=== PATIENT | female | born 1935 | race African-American/Black ===

== ENCOUNTER 2017-07-04 15:00 | Outpatient (RCR) | payer OTHER ==
[~2017-07-04 15:00] MED LIST: ADVAIR 500-501 EACH INH; CLARITIN10 M2 ORAL; DIPHENHYDRAMINE25 M1 ORAL; FLUTICASONE PRO16 G1 NASAL; HYDROCHLOROTH12.5 M2 ORAL; NORVASC5 MG ORAL; SPIRIVA18 MCG INH; VENTOLIN HFA18 GM INH
== END 2017-07-05 | disposition home or self-care (01) ==
LOC: PTY 15:00
PROVIDERS: ATTEND Internal Medicine
DX: M54.5 Low back pain (principal); G89.29 Other chronic pain; M21.70 Unequal limb length (acquired), unspecified site
CPT/HCPCS: 97110; 97140; 97162; G0283

== ENCOUNTER 2017-07-24 13:29 | Outpatient (RCR) | payer OTHER | END 2017-08-05 | disposition home or self-care (01) | LOC: PTY 13:29 | PROVIDERS: ATTEND Internal Medicine | DX: M54.5 Low back pain (principal); I10 Essential (primary) hypertension; M19.90 Unspecified osteoarthritis, unspecified site; J45.909 Unspecified asthma, uncomplicated; M81.0 Age-related osteoporosis without current pathological fracture | CPT/HCPCS: 97110; 97140; G0283 ==